=== PATIENT | male | born 1945 | race Caucasian/White ===

== ENCOUNTER → 2017-01-19 | Outpatient (CLI) | payer OTHER ==
[~2017-01-19] MED LIST: ASPEC325 PO; ASPI-390 PO; CLB200 PO; HYDR-5688 PO; LEVO50TA6 PO; MULT-506 PO; OXYSR10 PO; PRLSR20 PO
--- NOTE | 2017-01-19 09:29 | DIAGNOSTIC IMAGING REPORT ---
ORBITS FOR MRI CLINICAL HISTORY: 71 years-old Male presenting with PRE MRI. TECHNIQUE: Frontal and lateral views of the orbits were obtained. COMPARISON: None. FINDINGS: No metallic or abnormal opacity projects over the orbits to suggest intraorbital were obtained foreign body. Paranasal sinuses grossly clear. Mild rightward deviation of the osseous nasal septum. IMPRESSION: No intraorbital metallic foreign body to preclude MRI. Electronically signed by: Tamir Matthews M.D. 01/19/2017 9:27 AM Dictated Date/Time: 01/19/2017 9:26 AM
--- NOTE | 2017-01-19 10:36 | DIAGNOSTIC IMAGING REPORT ---
LUMBAR SPINE MRI HISTORY: Low back pain. LUMBAR STENOSIS TECHNIQUE: Multiplanar multisequence MRI of the lumbar spine was performed without the use of contrast. COMPARISON: None. FINDINGS: For the purpose of the report the L5-S1 disc space will be located on axial image 23 of 25. No fracture or subluxation. Severe disc space narrowing at L4-L5. Mild disc space narrowing at L5-S1. The conus terminates at the L1-L2 disc space level. Multiple bilateral peripelvic renal cysts. L1-L2: Small broad-based posterior disc osteophyte complex resulting in mild central canal narrowing. No significant neural foraminal narrowing. L2-L3: No significant central canal or neural foraminal narrowing. L3-L4: Broad-based posterior disc bulge asymmetric to the left with facet hypertrophy resulting in moderate central canal and mild bilateral neural foraminal narrowing. L4-L5: Broad-based posterior disc bulge asymmetric to the left resulting in mild central canal narrowing. There is moderate bilateral neural foraminal narrowing. L5-S1: Small broad-based posterior disc bulge without significant central canal or right-sided neural foraminal narrowing. There is moderate left-sided neural foraminal narrowing. IMPRESSION: Multilevel lumbar spondylosis as described above most pronounced at the L3-L4 level where there is moderate central canal narrowing. Electronically signed by: Lai Jimenez M.D. 01/19/2017 10:34 AM Dictated Date/Time: 01/19/2017 10:28 AM
== END | disposition home or self-care (01) ==
LOC: C.RADBC 09:06
PROVIDERS: ATTEND Pain Medicine Interventional Pain Medicine
DX: Z13.89 Encounter for screening for other disorder (principal); M48.06 Spinal stenosis, lumbar region; M47.896 Other spondylosis, lumbar region

== ENCOUNTER → 2017-02-05 | Outpatient (CLI) | payer OTHER ==
[2017-02-05 10:27] LABS: BASO % 0.2 %; BASO ABS # 0.02 K/uL (0-0.2); COMPLETE YES; EOS % 5.7 %; HEMATOCRIT 42.3 % (42-52); IG% 0.6 %; LYMPH % 27.9 %; LYMPH ABS # 2.26 K/uL (1.2-3.4); MEAN CELL VOLUME 86.2 fL (80-100); MEAN CORPUSCULAR HEMOGLOBIN 29.5 pg (25-34); MEAN CORPUSCULAR HGB CONC 34.3 g/dl (32-36); MEAN PLATELET VOLUME 9.9 fL (7.4-10.4); MONO % 12.8 %; NEUT % 52.8 %; PLATELET COUNT 231 K/uL (130-400); RED BLOOD COUNT 4.91 M/uL (4.7-6.1)
--- NOTE | 2017-02-05 15:00 | DIAGNOSTIC IMAGING REPORT ---
NUCLEAR MEDICINE THREE-PHASE BONE SCAN OF THE KNEES CLINICAL HISTORY: Right knee pain. History of right knee arthroplasty. COMPARISON STUDY: Conventional radiographic study dated 02/15/2015 FINDINGS: The patient was injected with 26.2 mCi of technetium 99m MDP. A vascular sequence centered on the knees was performed. There is very minimal right knee hyperemia. Blood pool images demonstrate right knee hyperemia. 3 hour delayed images of both knees were performed. There are bilateral photopenic defects, consistent with bilateral knee arthroplasties. There is very subtle increased activity within the right knee on both sides of the joint. Given the mild hyperemia, this could indicate an infection, or inflammatory joint process. IMPRESSION: 1. Subtle right knee hyperemia and increased blood pool activity. In addition there is subtle increased activity on both sides of the joint on the delayed images. This finding could indicate a septic arthritis, or noninfectious inflammatory joint process. Clinical correlation in this regard is advocated. Electronically signed by: Ariel Zelaya M.D. 02/05/2017 2:58 PM Dictated Date/Time: 02/05/2017 2:54 PM
== END | disposition home or self-care (01) ==
LOC: C.NUCL 09:43
DX: T84.84XA Pain due to internal orthopedic prosthetic devices, implants and grafts, initial encounter (principal); Z96.651 Presence of right artificial knee joint; Y83.1 Surgical operation with implant of artificial internal device as the cause of abnormal reaction of the patient, or of later complication, without mention of misadventure at the time of the procedure; R93.7 Abnormal findings on diagnostic imaging of other parts of musculoskeletal system

== ENCOUNTER → 2017-02-06 | Outpatient (CLI) | payer OTHER ==
[2017-02-06 14:13] LABS: SYNOVIAL FLUID APPEARANCE BLOODY; SYNOVIAL FLUID COLOR RED; SYNOVIAL FLUID MONONUC RELAT 88.9 %; SYNOVIAL FLUID POLYNUC RELAT 11.1 %
== END | disposition home or self-care (01) ==
LOC: C.LAB 12:57
DX: Z96.651 Presence of right artificial knee joint (principal)